=== PATIENT | male | born 1975 | race Caucasian/White ===

== ENCOUNTER 2022-04-24 12:37 | Outpatient (CLI) | payer OTHER, SELFPAY ==
--- NOTE | 2022-04-24 13:00 | CRLHL7_ITS ---
For Patients: As a result of the Cures Act, medical imaging exams and procedure reports are released immediately into your electronic medical record. You may view this report before your referring provider. If you have questions, please contact your health care provider. LEFT ANKLE 2 VIEWS INDICATION: Arthritis. TECHNIQUE: Left ankle 2 views. FINDINGS: Normal alignment. Talar dome intact. Mild soft tissue swelling. No erosive changes seen. Calcaneal spur. Nataly Harrison M.D. Diagnostic/Breast Radiologist [email or web address] DA/Dictated by: Nataly Harrison MD @ 04/24/2022 2:44:00 PM (Electronically Signed)
== END 2022-04-24 12:38 | disposition home or self-care (01) ==
LOC: RAD 12:46
DX: M19.072 Primary osteoarthritis, left ankle and foot (principal)
CPT/HCPCS: 73600